=== PATIENT | male | born 1980 | race Caucasian/White ===

== ENCOUNTER 2016-07-17 21:42 | Emergency (ER) | payer SELFPAY ==
[~2016-07-17] VITALS: Ht 188 cm; Wt 104.5 kg
[2016-07-17 21:49] VITALS: BP 147/98; PULSE 88; RESP 18; TEMP 98.3; O2SAT 97
[2016-07-18] MEDS ORDERED: CLON1 PO (02:24)
[2016-07-18 03:00] VITALS: BP 137/89; PULSE 82; RESP 18; O2SAT 97
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
[2016-07-18 03:29] LABS: AUTOMATED NEUTROPHIL # 6.9 TH/MM3 (1.8-7.7); BASOPHIL % 0.4 % (0.0-2.0); EOSINOPHIL # 0.1 TH/MM3 (0-0.4); EOSINOPHIL % 1.3 % (0.0-4.0); HEMATOCRIT 44.7 % (39.0-51.0); HEMO FLAGS DIFF FINAL; LYMPH % 25.3 % (9.0-44.0); LYMPHOCYTE # 2.8 TH/MM3 (1.0-4.8); MEAN CELL VOLUME 88.3 FL (80.0-100.0); MEAN CORPUSCULAR HEMOGLOBIN 30.6 PG (27.0-34.0); MEAN CORPUSCULAR HGB CONC 34.6 % (32.0-36.0); MONO % 10.3 % (0.0-8.0); NEUT % 62.7 % (16.0-70.0); PLATELET COUNT 191 TH/MM3 (150-450); RED BLOOD COUNT 5.06 MIL/MM3 (4.50-5.90); RED CELL DISTRIBUTION WIDTH 13.4 % (11.6-17.2); WHITE BLOOD COUNT 11.1 TH/MM3 (4.0-11.0)
[2016-07-18 03:35] LABS: ALT (GPT) 43 U/L (12-78); ANION GAP 9 MEQ/L (5-15); AST (GOT) 35 U/L (15-37); BICARBONATE 27.2 MEQ/L (21.0-32.0); BLOOD UREA NITROGEN 16 MG/DL (7-18); CHLORIDE 102 MEQ/L (98-107); GLOMERULAR FILTRATION RATE 64 ML/MIN (>89); POTASSIUM 3.9 MEQ/L (3.5-5.1); SODIUM (NA) 138 MEQ/L (136-145)
[2016-07-18 03:37] LABS: ALKALINE PHOSPHATASE 71 U/L (45-117); TOTAL BILIRUBIN ADULT 1.6 MG/DL (0.2-1.0)
[2016-07-18 04:19] LABS: AMPHETAMINE, URINE POS (NEG); BARBITURATES, URINE NEG (NEG); COCAINE, URINE POS (NEG)
[2016-07-18] MEDS ORDERED: clonazePAM 1 MG TAB PO ONE (05:45)
[2016-07-18 06:00] VITALS: BP 141/90; PULSE 77; RESP 18; O2SAT 95
[2016-07-18 08:22] VITALS: BP 122/67; PULSE 80; RESP 20; TEMP 98.1; O2SAT 100
== END 2016-07-18 11:13 | disposition home or self-care (01) ==
LOC: NEPC 21:42
DX: F19.10 Other psychoactive substance abuse, uncomplicated (principal); F39 Unspecified mood [affective] disorder; F17.210 Nicotine dependence, cigarettes, uncomplicated; F11.10 Opioid abuse, uncomplicated; F14.10 Cocaine abuse, uncomplicated; F15.10 Other stimulant abuse, uncomplicated
CPT/HCPCS: 80053; 80307; 85025; 99283

== ENCOUNTER 2016-07-27 06:43 | Emergency (ER) | payer OTHER ==
[~2016-07-27] VITALS: Ht 188 cm; Wt 106.0 kg
[2016-07-27] VITALS (7 sets, daily range): BP systolic 106–144; BP diastolic 63–94; PULSE 76–106; RESP 17–20; TEMP 97.6–99.4; O2SAT 97–100
[~2016-07-27 06:43] MED LIST: CLON1 PO
[2016-07-27] MEDS ORDERED: HALOPERIDOL LACTATE 5 MG/ML AMP IM ONE (07:30)
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
[2016-07-27 07:56] LABS: AMPHETAMINE, URINE POS (NEG); BARBITURATES, URINE NEG (NEG); COCAINE, URINE NEG (NEG)
== END 2016-07-28 04:06 ==
LOC: NEPE 06:43 → NEPJ 07-28 04:06
DX: F22 Delusional disorders (principal); F19.10 Other psychoactive substance abuse, uncomplicated; F15.10 Other stimulant abuse, uncomplicated; F17.200 Nicotine dependence, unspecified, uncomplicated; Z86.59 Personal history of other mental and behavioral disorders; Z86.79 Personal history of other diseases of the circulatory system; Z87.39 Personal history of other diseases of the musculoskeletal system and connective tissue; Z87.09 Personal history of other diseases of the respiratory system
CPT/HCPCS: 80307; 96372; 99285; J1630